=== PATIENT | female | born 2000 | race Caucasian/White ===

== ENCOUNTER 2023-10-30 04:11 | Emergency (ER) | payer OTHER, SELFPAY ==
[2023-10-30 04:23] VITALS: BP 106/75; PULSE 74; RESP 16; TEMP 37.1; O2SAT 97
--- NOTE | 2023-10-30 04:45 | ED.GENADUL1 ---
HPI - General Adult General Chief complaint: Headache Stated complaint: HEADACHE Time Seen by Provider: 10/30/23 04:33 Source: patient Mode of arrival: walk-in Limitations: no limitations History of Present Illness HPI narrative: presents complaining of a migraine for 2 days. States seen at [facility] last PM and given an injection of Toradol. Now presents here as she continues to have Headache and nausea. No fever Related Data Allergies Allergy/AdvReac Type Severity Reaction Status Date / Time No Known Drug Allergies Allergy Verified 10/30/23 04:25 Review of Systems ROS Status of ROS 10 or more systems reviewed and unremarkable except as noted in history and below PFSH PFS Social History Smoking status: Never smoker Exam Constitutional Vital Signs, click to edit/add: Last Vital Signs Temp 98.8 F 10/30/23 04:23 Pulse 74 10/30/23 04:23 Resp 16 10/30/23 04:23 BP 106/75 10/30/23 04:23 Pulse Ox 97 10/30/23 04:23 Common normals: no apparent distress, average body habitus, oriented x3, no limitations, healthy appearing and alert Eye Common normals: EOMs intact bilaterally and conjunctivae normal Respiratory Common normals: normal respiratory effort, no retractions and no use of accessory muscles Cardio Common normals: regular rate, regular rhythm, S1 normal heart sound and S2 normal heart sound GI Common normals: Normal to inspection, nondistended, normoactive bowel sounds present, soft to palpation and non-tender Extremity Common normals: normal to inspection and full ROM Neuro Common normals: oriented x3, CN's II-XII intact bilaterally, moves all extremities and no focal motor deficits Psych Appearance: grossly normal Course Vital Signs Vital signs: Vital Signs Temperature 98.8 F 10/30/23 04:23 Pulse Rate 74 10/30/23 04:23 Respiratory Rate 16 10/30/23 04:23 Blood Pressure 106/75 10/30/23 04:23 Pulse Oximetry 97 10/30/23 04:23 Temperature 98.8 F 10/30/23 04:23 Pulse Rate 74 10/30/23 04:23 Respiratory Rate 16 10/30/23 04:23 Blood Pressure 106/75 10/30/23 04:23 Pulse Oximetry 97 10/30/23 04:23 Medical Decision Making [facility] Narrative Medical decision making narrative: presents complaining of migraine headache. CT with findings of mild sinusitis. Migraine treated and she is now feeling better. Discharged home with a prescription of Augmentin and is to follow up with her doctor Lab Data Labs: Lab Results 10/30/23 10/30/23 Range/Units 05:20 05:25 WBC 9.1 (4.0-11.0) 10^3/uL RBC 4.26 (4.20-5.40) 10^6/uL Hgb 12.6 (12.0-16.0) g/dL Hct 38.3 (36.0-48.0) % MCV 89.9 (81.0-99.0) fL MCH 29.6 (26.7-34.0) pg MCHC 32.9 (29.9-35.2) g/dL RDW 12.7 (11.0-15.0) % Plt Count 309 (150-450) 10^3/uL MPV 10.1 (9.5-13.5) fL Neut % (Auto) 76.7 H (43.0-75.0) % Lymph % (Auto) 15.2 L (20.5-60.0) % Citrus % (Auto) 5.6 (1.7-12.0) % Eos % (Auto) 1.9 (0.9-7.0) % Baso % (Auto) 0.4 (0.2-2.0) % Neut # (Auto) 6.9 H (1.4-6.5) 10^3/uL Lymph # (Auto) 1.4 (1.2-3.8) 10^3/uL Citrus # (Auto) 0.5 (0.3-0.8) 10^3/uL Eos # (Auto) 0.2 (0.0-0.7) 10^3/uL Baso # (Auto) 0.0 (0.0-0.1) 10^3/uL Abs Immat Gran (auto) 0.02 (0.00-0.03) 10^3/uL Imm/Tot Granulo (auto) 0.2 (0.0-0.5) % Sodium 139 (136-145) mmol/L Potassium 4.1 (3.5-5.1) mmol/L Chloride 104 (98-107) mmol/L Carbon Dioxide 25.6 (21.0-32.0) mmol/L Anion Gap 13.5 BUN 19.0 H (7.0-18.0) mg/dL Creatinine 1.07 H (0.55-1.02) mg/dL Est GFR ( Amer) >60 (>=60) Est GFR (Non-Af Amer) >60 (>=60) BUN/Creatinine Ratio 17.8 Glucose 95 (74-106) mg/dL Calcium 9.1 (8.5-10.1) mg/dL C-Reactive Protein 0.55 H (<=0.30) mg/dL Urine HCG, Qual Negative (NEGATIVE) Discharge Plan Discharge Chief Complaint: Headache Clinical Impression: Migraine, Sinusitis Patient Disposition: Home, Self-Care Instructions: Sinusitis (ED), Migraine Headache (ED) Stand Alone Forms: Portal Instructions Referrals: [facility] [Primary Care Provider] - 1 week
--- NOTE | 2023-10-30 04:47 | CT_ITS ---
The [address] [address] Patient Name: MILLA HERNANDEZ MRN: [id number] date: 2000 Sex: F Assigned Patient Location: ER Current Patient Location: ER Accession/Order Number: [id number] Exam Date: 10/30/2023 06:00 Report Date: 10/30/2023 06:13 At the request of: ELVIRA THAKUR Procedure: CT head/brain wo con EXAM: CT head/brain wo con HISTORY: headache COMPARISON: None. TECHNIQUE: Nonenhanced CT imaging of the head was performed with sagittal and coronal reconstructions. Dose reduction techniques were achieved by using automated exposure control and/or adjustment of mA and/or kV according to patient size and/or use of iterative reconstruction technique. FINDINGS: The brain parenchyma, ventricles and extra-axial CSF spaces appear within normal limits. No intracranial hemorrhage, edema, mass effect or midline shift is seen. The calvarium and facial bones appear intact. There is bilateral ethmoid and anterior sphenoid mucosal thickening. Remaining paranasal sinuses and the bilateral mastoid air cells are otherwise clear. CT/CT head/brain wo con IMPRESSION: 1. No acute intracranial abnormality. 2. Mild chronic appearing bilateral ethmoid and anterior sphenoid sinusitis. Electronically authenticated by: QUEENIE HAYS Date: 10/30/2023 06:13
[2023-10-30 05:34] LABS: Basophils Percent Auto 0.4 % (0.2-2.0); Eosinophils Absolute Auto 0.2 10^3/uL (0.0-0.7); Eosinophils Percent Auto 1.9 % (0.9-7.0); Hematocrit 38.3 % (36.0-48.0); Hemoglobin 12.6 g/dL (12.0-16.0); Immature Granulocytes Abs Auto 0.02 10^3/uL (0.00-0.03); Immature Granulocytes Pct Auto 0.2 % (0.0-0.5); Lymphocytes Absolute Auto 1.4 10^3/uL (1.2-3.8); Lymphocytes Percent Auto 15.2 % (20.5-60.0); Mean Corpuscular HGB Conc 32.9 g/dL (29.9-35.2); Mean Corpuscular Hemoglobin 29.6 pg (26.7-34.0); Mean Corpuscular Volume 89.9 fL (81.0-99.0); Mean Platelet Volume 10.1 fL (9.5-13.5); Monocytes Absolute Auto 0.5 10^3/uL (0.3-0.8); Monocytes Percent Auto 5.6 % (1.7-12.0); Neutrophils Absolute Auto 6.9 10^3/uL (1.4-6.5); Neutrophils Percent Auto 76.7 % (43.0-75.0); Platelet Count 309 10^3/uL (150-450); Red Blood Count 4.26 10^6/uL (4.20-5.40); Red Cell Distribution Width 12.7 % (11.0-15.0); White Blood Count 9.1 10^3/uL (4.0-11.0)
[2023-10-30 05:49] LABS: Anion Gap 13.5; BUN Creatinine Ratio 17.8; Calcium 9.1 mg/dL (8.5-10.1); Carbon Dioxide 25.6 mmol/L (21.0-32.0); Chloride 104 mmol/L (98-107); Estimated GFR (African America >60 (>=60); Estimated GFR (Non-African Ame >60 (>=60); Glucose 95 mg/dL (74-106); Potassium 4.1 mmol/L (3.5-5.1); Sodium 139 mmol/L (136-145)
[2023-10-30 05:49] LABS: HCG Qualitative Urine* NEGATIVE (NEGATIVE)
[2023-10-30 05:50] LABS: C Reactive Protein 0.55 mg/dL (<=0.30)
[2023-10-30] MEDS: METHYLPREDNISOLONE SOD SUCC PF 125 MG/2 ML VIAL IVP (05:56)
[2023-10-30] MEDS: MAGNESIUM SULFATE IN WATER 2 GM/50 ML PREMIX IV (05:56)
[2023-10-30] MEDS: METOCLOPRAMIDE HCL 10 MG/2 ML VIAL IVP (05:56)
== END 2023-10-30 07:09 | disposition home or self-care (01) ==
PROVIDERS: Emergency Provider Internal Medicine
DX: G43.909 Migraine, unspecified, not intractable, without status migrainosus (principal); J32.9 Chronic sinusitis, unspecified
CPT/HCPCS: 36415; 70450; 80048; 84703; 85025; 86140; 96365; 96375; 99284; J2930